=== PATIENT | female | born 1980 | race Caucasian/White ===

== ENCOUNTER 2025-05-23 02:38 | Emergency (ER) | payer SELFPAY ==
[2025-05-23 02:52] VITALS: PULSE 82; RESP 16; O2SAT 99
== END 2025-05-23 03:21 | disposition left against medical advice (07) ==
LOC: ER 02:38
DX: M54.9 Dorsalgia, unspecified (principal); Z53.21 Procedure and treatment not carried out due to patient leaving prior to being seen by health care provider
CPT/HCPCS: 99281